=== PATIENT | male | born 1995 | race Caucasian/White ===

== ENCOUNTER 2016-09-03 22:29 | Emergency (ER) | payer OTHER ==
--- NOTE | 2016-09-04 01:22 | EDDOCDS ---
Physician Documentation [facility] Name: James Byers Age: 21 yrs Sex: Male : 1995 Arrival Date: 09/03/2016 Time: 22:29 Bed TR7 Private MD: Other - Complete Info On Cds Disposition: 09/04/16 00:16 Discharged to Home/Self Care. Impression: Acute sinusitis, unspecified, Acute pharyngitis, unspecified. - Condition is Stable. - Discharge Instructions: Sinusitis, Adult, Sore Throat. - Prescriptions for Augmentin 875- 125 mg Oral Tablet - take 1 tablet by ORAL route every 12 hours for 10 days; 20 tablet. magic mouthwash Mucous Membrane Solution - as directed 5 milliliters by ORAL route 3-4 times daily As needed GARGLE, SWISH, SPIT. MAALOX, LIQUID BENADRYL, VISCOUS LIDOCAINE. 1:1:1; 237 milliliter. Fluticasone 50 mcg/actuation Nasal [place], Suspension - inhale 2 spray by INTRANASAL route once daily; 1 bottle. - Medication Reconciliation, Local Pharmacy Hours, Work Release Form - 2 day form. - Follow up: Emergency Department; When: As needed; Reason: Worsening of conditions. Follow up: Private Physician; When: 1 - 2 days; Reason: Wound/Symptom Recheck, Recheck today's complaints, Continuance of care. - Problem is new. - Symptoms are unchanged. Historical: - Allergies: Codeine Sulfate (Anaphylaxis); - Home Meds: 1. Tylenol Severe Sinus 2 tab every 4 hours (Last dose: 09/03/2016 14:00) 2. Nyquil 2 tab as needed (Last dose: 09/03/2016 21:00) - PMHx: none; - PSHx: Adenoidectomy (March 2016); Tonsillectomy (March 2016); - Social history: Smoking status: Patient states was never smoker of tobacco. No barriers to communication noted, The patient speaks fluent Irish, Speaks appropriately for age. - Family history: Not pertinent. - : The pt / caregiver states he / she is not on anticoagulants. Home medication list is obtained from the patient. - Exposure Risk Screening:: None identified. Vital Signs: 09/03 22:30 BP 123 / 67; Pulse 93; Resp 18 S; Temp 100.0(O); Pulse Ox 98% on R/A; Weight 77.11 kg / gr2 170 lbs (R); Height 5 ft. 9 in. (175.26 cm) (R); Pain 4/10; 22:30 Body Mass Index 25.10 (77.11 kg, 175.26 cm) gr2 MDM: 22:43 Strep Screen, Nursing [place]. [facility] 22:43 Obtain sample by nasal aspiration ordered. [facility] 22:44 -Influenza A&B Rapid Antigen - Nose Ordered. EDMS 23:09 GATS (NEGATIVE STREP SCREEN) Ordered. EDMS 09/04 00:38 Financial registration complete. [facility] 00:38 [facility] Payment Agreement was scanned into [employer] and attached to record. [facility] Signatures: Dispatcher [employer] [facility] Lo Bahena, RN ARTEM [facility] Raimundo Leiva RN RN Danae Arroyo, Divya Mak PA-C [facility] The chart was reviewed and I authenticate all verbal orders and agree with the evaluation and treatment provided.Attachments: 00:38 [facility] Payment Agreement [facility] MTDD
--- NOTE | 2016-09-04 01:23 | EDDOCDS ---
Nurse's Notes [facility] Name: James Byers Age: 21 yrs Sex: Male : 1995 Arrival Date: 09/03/2016 Time: 22:29 Bed TR7 Private MD: Other - Complete Info On Cds Diagnosis: Acute sinusitis, unspecified;Acute pharyngitis, unspecified Presentation: 09/03 22:33 Presenting complaint: Patient states: "Can't breath, can't swallow, nose stuffed up, kmg1 neck sore, headache, and hot and cold.". Adult Sepsis Screening: The patient does not have new or worsening altered mentation. Patient's respiratory rate is less than 22. Systolic blood pressure is greater than 100. Patient has a qSOFA score of 0- Negative Sepsis Screen. Suicide/Homicide risk assessment- the patient denies having any suicidal and/or homicidal ideations and does not present with any other emotional, behavioral or mental health complaints. 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 Transition of care: patient was not received from another setting of care. 22:33 Acuity: FADY Level 4 km 22:33 Method Of Arrival: Walkin/Carried/Asstd km Triage Assessment: 22:39 General: Appears in no apparent distress, comfortable, Behavior is appropriate for age, kmg1 cooperative. Pain: Location: head and face Pain currently is 10 out of 10 on a pain scale. Quality of pain is described as aching, pressure, throbbing. HIV screening NA for this visit Offered previously. Neurological: Level of Consciousness is awake, alert, Oriented to person, place, time, Reports headache. Historical: - Allergies: Codeine Sulfate (Anaphylaxis); - Home Meds: 1. Tylenol Severe Sinus 2 tab every 4 hours (Last dose: 09/03/2016 14:00) 2. Nyquil 2 tab as needed (Last dose: 09/03/2016 21:00) - PMHx: none; - PSHx: Adenoidectomy (March 2016); Tonsillectomy (March 2016); - Social history: Smoking status: Patient states was never smoker of tobacco. No barriers to communication noted, The patient speaks fluent [place], Speaks appropriately for age. - Family history: Not pertinent. - : The pt / caregiver states he / she is not on anticoagulants. Home medication list is obtained from the patient. - Exposure Risk Screening:: None identified. Screenin/22 01:20 Screening information is obtained from the patient. Fall risk: No risks identified. cz Assistance ADL's: requires no assistance with activities of daily living. Abuse/DV Screen: The patient / caregiver reports he/she is: not in a situation that causes fear, pain or injury. Nutritional screening: No deficits noted. Advance Directives: Currently, there is no health care proxy. There is no active DNR order. There is no living will. There is no Power of [employer]. Advance directive information has not previously been placed in an [facility] medical record. home support is adequate. Assessment: 01:20 Reassessment: Patient appears in no apparent distress at this time. Vital Signs: 09/03 22:30 BP 123 / 67; Pulse 93; Resp 18 S; Temp 100.0(O); Pulse Ox 98% on R/A; Weight 77.11 kg gr2 (R); Height 5 ft. 9 in. (175.26 cm) (R); Pain 4/10; 22:30 Body Mass Index 25.10 (77.11 kg, 175.26 cm) gr2 Vitals: 22:30 Log In Time: September 03, 2016 at 22:30. gr2 23:08 Strep Screen is obtained and tested: Negative, a GATSNEG culture is ordered in [place] [id number] and sent. ED Course: 22:29 Patient visited by Abe Perez. gr2 22:29 Patient moved to Waiting gr2 22:30 Other - Complete Info On Cds is Private Physician. gr2 22:32 Patient visited by Aeb Perez. gr2 22:32 Patient moved to Pre RCE gr2 22:34 Triage Initiated kmg1 22:45 -Influenza A&B Rapid Antigen - Nose Sent. kmg1 23:24 GATS (NEGATIVE STREP SCREEN) Sent. kmg1 23:57 Patient moved to Triage 2 cz 09/04 00:08 Danae Arroy[facility]-C [facility]. dt4 00:08 Rhett Vaca DO is Attending Physician. dt4 00:08 Patient visited by Danae Arroyo PA-C. dt4 00:31 [facility] to [facility] cz 00:37 Patient name changed from James\\S\\T\\S\\Byers\\S\\ to James\\S\\Rhys\\S\\Byers. EDMS 00:38 [facility] Payment Agreement was scanned into [employer] and attached to record. [facility] 01:20 The patient / caregiver is instructed regarding the plan of care and ED course. cz 01:20 No IV's were initiated during this patient's visit. No procedures done that require cz assistance. Order Results: Lab Order: -Influenza A&B Rapid Antigen - Nose; SPEC'M 09/03/16 22:48 Test: INFLUENZA A RAPID SCR by ICA; Value: INFLUENZA A RESULTS NEGATIVE; Status: F Test: INFLUENZA A RAPID SCR by ICA; Value: Comments:; Status: F Test: INFLUENZA B RAPID SCR by ICA; Value: INFLUENZA B RESULTS NEGATIVE; Status: F Test Note: ; The Influenza test is a direct rapid immunoassay for the qualitative detection of Influenza viral antigen. Cell culture (Viral Culture) testing should be considered to confirm NEGATIVE results and to assist in detecting other viruses that can provide similar clinical symptoms. Please contact the lab within 24 hours ([phone]) if confirmatory testing is desired. Outcome: 00:16 Discharge ordered by Provider. dt4 01:20 Discharge Assessment: Patient awake, alert and oriented x 3. No cognitive and/or cz functional deficits noted. Patient verbalized understanding of disposition instructions. patient administered narcotics - no. The following High Risk Discharge criteria are identified: None. Discharged to home ambulatory, with significant other. Condition: stable. Discharge instructions given to patient, Instructed on discharge instructions, follow up and referral plans. medication usage, Demonstrated understanding of instructions, medications, Pt was receptive of discharge instructions/ teaching. Prescriptions given X 3. No special radiology studies were completed. Property :Personal belongings accompany Pt. 01:22 Patient left the ED. cz Signatures: Dispatcher [employer] EDMS Lo Bahena RN RN kmg1 Raimundo Leiva RN RN cz Abe Perez gr2 Danae Arroyo PA-C PA-C dt4 Divya Vásquez [facility] MTDD
--- NOTE | 2016-09-06 02:23 | EDDOCDS ---
Physician Documentation [facility] Name: James Byers Age: 21 yrs Sex: Male : 1995 Arrival Date: 09/03/2016 Time: 22:29 Bed TR7 Private MD: Other - Complete Info On Cds Disposition: 09/04/16 00:16 Discharged to Home/Self Care. Impression: Acute sinusitis, unspecified, Acute pharyngitis, unspecified. - Condition is Stable. - Discharge Instructions: Sinusitis, Adult, Sore Throat. - Prescriptions for Augmentin 875- 125 mg Oral Tablet - take 1 tablet by ORAL route every 12 hours for 10 days; 20 tablet. magic mouthwash Mucous Membrane Solution - as directed 5 milliliters by ORAL route 3-4 times daily As needed GARGLE, SWISH, SPIT. MAALOX, LIQUID BENADRYL, VISCOUS LIDOCAINE. 1:1:1; 237 milliliter. Fluticasone 50 mcg/actuation Nasal [place], Suspension - inhale 2 spray by INTRANASAL route once daily; 1 bottle. - Medication Reconciliation, Local Pharmacy Hours, Work Release Form - 2 day form. - Follow up: Emergency Department; When: As needed; Reason: Worsening of conditions. Follow up: Private Physician; When: 1 - 2 days; Reason: Wound/Symptom Recheck, Recheck today's complaints, Continuance of care. - Problem is new. - Symptoms are unchanged. Historical: - Allergies: Codeine Sulfate (Anaphylaxis); - Home Meds: 1. Tylenol Severe Sinus 2 tab every 4 hours (Last dose: 09/03/2016 14:00) 2. Nyquil 2 tab as needed (Last dose: 09/03/2016 21:00) - PMHx: none; - PSHx: Adenoidectomy (March 2016); Tonsillectomy (March 2016); - Social history: Smoking status: Patient states was never smoker of tobacco. No barriers to communication noted, The patient speaks fluent Thai, Speaks appropriately for age. - Family history: Not pertinent. - : The pt / caregiver states he / she is not on anticoagulants. Home medication list is obtained from the patient. - Exposure Risk Screening:: None identified. Vital Signs: 09/03 22:30 BP 123 / 67; Pulse 93; Resp 18 S; Temp 100.0(O); Pulse Ox 98% on R/A; Weight 77.11 kg / gr2 170 lbs (R); Height 5 ft. 9 in. (175.26 cm) (R); Pain 4/10; 22:30 Body Mass Index 25.10 (77.11 kg, 175.26 cm) gr2 MDM: 22:43 [place]rep Screen, [place] [facility] [place] Obtain sample by nasal aspiration [place]. [facility] 22:44 -Influenza A&B Rapid Antigen - Nose Ordered. EDMS 23:09 GATS (NEGATIVE STREP SCREEN) Ordered. EDMS 09/04 00:38 Financial registration complete. [facility] 00:38 [facility] Payment Agreement was scanned into [employer] and attached to record. [facility] 14:03 T-Sheet-- Draft Copy was scanned into [employer] and attached to record. kf3 Signatures: Dispatcher [employer] EDPA Lo Bahena RN RN kmg1 Raimundo Leiva RN RN cz Ramiro Avila, Reg Reg kf3 Danae Arroyo PA-C PAGay dt4 Divya Vásquez [facility] The chart was reviewed and I authenticate all verbal orders and agree with the evaluation and treatment provided.Attachments: 00:38 [facility] Payment Agreement [facility] 14:03 T-Sheet-- Draft Copy kf3 Chart Complete MTDD
--- NOTE | 2016-09-06 02:23 | EDDOCDS ---
Nurse's Notes [facility] Name: James Byers Age: 21 yrs Sex: Male : 1995 Arrival Date: 09/03/2016 Time: 22:29 Bed TR7 Private MD: Other - Complete Info On Cds Diagnosis: Acute sinusitis, unspecified;Acute pharyngitis, unspecified Presentation: 09/03 22:33 Presenting complaint: Patient states: "Can't breath, can't swallow, nose stuffed up, kmg1 neck sore, headache, and hot and cold.". Adult Sepsis Screening: The patient does not have new or worsening altered mentation. Patient's respiratory rate is less than 22. Systolic blood pressure is greater than 100. Patient has a qSOFA score of 0- Negative Sepsis Screen. Suicide/Homicide risk assessment- the patient denies having any suicidal and/or homicidal ideations and does not present with any other emotional, behavioral or mental health complaints. 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 Transition of care: patient was not received from another setting of care. 22:33 Acuity: FADY Level 4 km 22:33 Method Of Arrival: Walkin/Carried/Asstd km Triage Assessment: 22:39 General: Appears in no apparent distress, comfortable, Behavior is appropriate for age, kmg1 cooperative. Pain: Location: head and face Pain currently is 10 out of 10 on a pain scale. Quality of pain is described as aching, pressure, throbbing. HIV screening NA for this visit Offered previously. Neurological: Level of Consciousness is awake, alert, Oriented to person, place, time, Reports headache. Historical: - Allergies: Codeine Sulfate (Anaphylaxis); - Home Meds: 1. Tylenol Severe Sinus 2 tab every 4 hours (Last dose: 09/03/2016 14:00) 2. Nyquil 2 tab as needed (Last dose: 09/03/2016 21:00) - PMHx: none; - PSHx: Adenoidectomy (March 2016); Tonsillectomy (March 2016); - Social history: Smoking status: Patient states was never smoker of tobacco. No barriers to communication noted, The patient speaks fluent Kazakh, Speaks appropriately for age. - Family history: Not pertinent. - : The pt / caregiver states he / she is not on anticoagulants. Home medication list is obtained from the patient. - Exposure Risk Screening:: None identified. Screenin/22 01:20 Screening information is obtained from the patient. Fall risk: No risks identified. cz Assistance ADL's: requires no assistance with activities of daily living. Abuse/DV Screen: The patient / caregiver reports he/she is: not in a situation that causes fear, pain or injury. Nutritional screening: No deficits noted. Advance Directives: Currently, there is no health care proxy. There is no active DNR order. There is no living will. There is no Power of Safety And Health Consultant. Advance directive information has not previously been placed in an [facility] medical record. home support is adequate. Assessment: 01:20 Reassessment: Patient appears in no apparent distress at this time. Vital Signs: 09/03 22:30 BP 123 / 67; Pulse 93; Resp 18 S; Temp 100.0(O); Pulse Ox 98% on R/A; Weight 77.11 kg gr2 (R); Height 5 ft. 9 in. (175.26 cm) (R); Pain 4/10; 22:30 Body Mass Index 25.10 (77.11 kg, 175.26 cm) gr2 Vitals: 22:30 Log In Time: September 03, 2016 at 22:30. gr2 23:08 Strep Screen is obtained and tested: Negative, a GATSNEG culture is ordered in [place] [address] and sent. ED Course: 22:29 Patient visited by Abe Perez. gr2 22:29 Patient moved to Waiting gr2 22:30 Other - Complete Info On Cds is Private Physician. gr2 22:32 Patient visited by Abe Perez. gr2 22:32 Patient moved to Pre RCE gr2 22:34 Triage Initiated kmg1 22:45 -Influenza A&B Rapid Antigen - Nose Sent. kmg1 23:24 GATS (NEGATIVE STREP SCREEN) Sent. kmg1 23:57 Patient moved to Triage 2 cz 09/04 00:08 Danae Arroy[facility]-C [facility]. dt4 00:08 Rhett Vaca DO is Attending Physician. dt4 00:08 Patient visited by Danae Arroyo PA-C. dt4 00:31 Patient moved to [facility] cz 00:37 Patient name changed from James\\S\\T\\S\\Byers\\S\\ to James\\S\\Rhys\\S\\Byers. EDMS 00:38 [facility] Payment Agreement was scanned into [employer] and attached to record. [facility] 01:20 The patient / caregiver is instructed regarding the plan of care and ED course. cz 01:20 No IV's were initiated during this patient's visit. No procedures done that require cz assistance. 14:03 T-Sheet-- Draft Copy was scanned into [employer] and attached to record. kf3 Order Results: Lab Order: -Influenza A&B Rapid Antigen - Nose; SPEC'M 09/03/16 22:48 Test: INFLUENZA A RAPID SCR by ICA; Value: INFLUENZA A RESULTS NEGATIVE; Status: F Test: INFLUENZA A RAPID SCR by ICA; Value: Comments:; Status: F Test: INFLUENZA B RAPID SCR by ICA; Value: INFLUENZA B RESULTS NEGATIVE; Status: F Test Note: ; The Influenza test is a direct rapid immunoassay for the qualitative detection of Influenza viral antigen. Cell culture (Viral Culture) testing should be considered to confirm NEGATIVE results and to assist in detecting other viruses that can provide similar clinical symptoms. Please contact the lab within 24 hours ([phone]) if confirmatory testing is desired. Lab Order: GATS (NEGATIVE STREP SCREEN); SPEC'M 09/03/16 23:08 Test: GATS CULTURE (NEG STREP SCR); Value: GATS RESULT NEGATIVE FOR STREP PYOGENES (GROUP A); Status: F Outcome: 00:16 Discharge ordered by Provider. dt4 01:20 Discharge Assessment: Patient awake, alert and oriented x 3. No cognitive and/or cz functional deficits noted. Patient verbalized understanding of disposition instructions. patient administered narcotics - no. The following High Risk Discharge criteria are identified: None. Discharged to home ambulatory, with significant other. Condition: stable. Discharge instructions given to patient, Instructed on discharge instructions, follow up and referral plans. medication usage, Demonstrated understanding of instructions, medications, Pt was receptive of discharge instructions/ teaching. Prescriptions given X 3. No special radiology studies were completed. Property :Personal belongings accompany Pt. 01:22 Patient left the ED. cz Signatures: Dispatcher [facility] Lo Bahena RN RN kmg1 Raimundo Leiva RN RN cz Ramiro Avila, Reg Reg kf3 Abe Perez gr2 Danae Arroyo PA-C PA-C dt4 Divya Vásquez bere Chart Complete MTDD
--- NOTE | 2016-09-06 02:23 | EDDOCDS ---
Physician Documentation [facility] Name: James Byers Age: 21 yrs Sex: Male : 1995 Arrival Date: 09/03/2016 Time: 22:29 Bed TR7 Private MD: Other - Complete Info On Cds Disposition: 09/04/16 00:16 Discharged to Home/Self Care. Impression: Acute sinusitis, unspecified, Acute pharyngitis, unspecified. - Condition is Stable. - Discharge Instructions: Sinusitis, Adult, Sore Throat. - Prescriptions for Augmentin 875- 125 mg Oral Tablet - take 1 tablet by ORAL route every 12 hours for 10 days; 20 tablet. magic mouthwash Mucous Membrane Solution - as directed 5 milliliters by ORAL route 3-4 times daily As needed GARGLE, SWISH, SPIT. MAALOX, LIQUID BENADRYL, VISCOUS LIDOCAINE. 1:1:1; 237 milliliter. Fluticasone 50 mcg/actuation Nasal [place], Suspension - inhale 2 spray by INTRANASAL route once daily; 1 bottle. - Medication Reconciliation, Local Pharmacy Hours, Work Release Form - 2 day form. - Follow up: Emergency Department; When: As needed; Reason: Worsening of conditions. Follow up: Private Physician; When: 1 - 2 days; Reason: Wound/Symptom Recheck, Recheck today's complaints, Continuance of care. - Problem is new. - Symptoms are unchanged. Historical: - Allergies: Codeine Sulfate (Anaphylaxis); - Home Meds: 1. Tylenol Severe Sinus 2 tab every 4 hours (Last dose: 09/03/2016 14:00) 2. Nyquil 2 tab as needed (Last dose: 09/03/2016 21:00) - PMHx: none; - PSHx: Adenoidectomy (March 2016); Tonsillectomy (March 2016); - Social history: Smoking status: Patient states was never smoker of tobacco. No barriers to communication noted, The patient speaks fluent Croatian, Speaks appropriately for age. - Family history: Not pertinent. - : The pt / caregiver states he / she is not on anticoagulants. Home medication list is obtained from the patient. - Exposure Risk Screening:: None identified. Vital Signs: 09/03 22:30 BP 123 / 67; Pulse 93; Resp 18 S; Temp 100.0(O); Pulse Ox 98% on R/A; Weight 77.11 kg / gr2 170 lbs (R); Height 5 ft. 9 in. (175.26 cm) (R); Pain 4/10; 22:30 Body Mass Index 25.10 (77.11 kg, 175.26 cm) gr2 MDM: 22:43 Strep Screen, Nursing ordered. [facility] 22:43 Obtain sample by nasal aspiration ordered. [facility] 22:44 -Influenza A&B Rapid Antigen - Nose Ordered. EDMS 23:09 GATS (NEGATIVE STREP SCREEN) Ordered. EDMS 09/04 00:[address] [facility] 00:38 [facility] Payment Agreement was scanned into [employer] and attached to record. [facility] 14:03 T-Sheet-- Draft Copy was scanned into [employer] and attached to record. kf3 Signatures: Dispatcher [employer] EDAR Lo Bahena RN RN kmg1 Raimundo Leiva RN RN cz Ramiro Avila, Reg Reg kf3 Danae Arroyo PA-C PAGay dt4 Divya Vásquez [facility] The chart was reviewed and I authenticate all verbal orders and agree with the evaluation and treatment provided.Attachments: 00:38 [facility] Payment Agreement [facility] 14:03 T-Sheet-- Draft Copy kf3 Chart Complete MTDD
== END 2016-09-04 01:22 | disposition home or self-care (01) ==
LOC: M ED 22:29
DX: J01.90 Acute sinusitis, unspecified (principal); J02.9 Acute pharyngitis, unspecified; Z88.5 Allergy status to narcotic agent

== ENCOUNTER 2020-02-11 10:23 | Day surgery (SDC) | payer OTHER ==
[~2020-02-11] VITALS: Ht 175.3 cm; Wt 95.3 kg
[~2020-02-11 10:23] MED LIST: LIDOCAINE 1% MDV 20ML VIAL SQ PRN; LR 1,000 ML IV ONE; PROT20TA11 PO; ceFAZolin SOD 2 GM in IV 1 EA IV ONE
[2020-02-11] MEDS ORDERED: ROPIvacaine 0.5% 30ML INJECTION (J2795 PER 1MG) ONE (10:24)
[2020-02-11] MEDS ORDERED: LIDOCAINE 1% MDV 20ML VIAL ONE (10:24)
[2020-02-11] MEDS ORDERED: dexameTHASONE 10MG/1ML VIAL PRES.FREE (J1100 PER 1MG) ONE (10:24)
[2020-02-11] MEDS ORDERED: propofoL 200 MG/20 ML VIAL As Ordered ONE ×3 (11:17→15:29)
[2020-02-11] MEDS ORDERED: MIDAZOLAM INJ 2MG/2ML VIAL (J2250 PER 1MG) As Ordered ONE ×2 (11:18→11:22)
[2020-02-11] MEDS ORDERED: LIDOCAINE 2% 100MG/5ML SDV (FOR ANES.) As Ordered ONE (11:19)
[2020-02-11] MEDS ORDERED: fentaNYL 100 MCG/2 ML INJECTION (J3010) As Ordered ONE ×3 (11:21→14:55)
[2020-02-11] MEDS ORDERED: ROCURONIUM BROMIDE 50 MG/5 ML VIAL As Ordered ONE ×2 (11:22→14:19)
[2020-02-11] MEDS ORDERED: fentaNYL 100 MCG/2 ML INJECTION (J3010) IV ONE (12:00)
[2020-02-11] MEDS ORDERED: MIDAZOLAM INJ 2MG/2ML VIAL (J2250 PER 1MG) IV ONE (12:00)
[2020-02-11] MEDS ORDERED: BUPIVACAINE HCL 0.5% 30 ML VIAL As Ordered ONE (13:08)
[2020-02-11] MEDS ORDERED: ONDANSETRON 4MG/2ML VIAL As Ordered ONE (13:09)
[2020-02-11] MEDS ORDERED: SUGAMMADEX SODIUM 500 MG/5 ML VIAL (BRIDION) As Ordered ONE (13:09)
--- NOTE | 2020-02-11 14:30 | REP ---
Clinical: Preoperative assessment. Technique: Portable single view of the left shoulder. Findings: The glenohumeral joint appears relatively intact and normal. Resorptive changes to the distal clavicle versus trauma. Electronically Signed by Solo Haynes MD 02/11/2020 02:21 P
[2020-02-11] MEDS ORDERED: ACETAMINOPHEN 1000MG 100ML IV BTL (OFIRMEV) (J0131 PER 10MG) As Ordered ONE (15:36)
[2020-02-11] MEDS ORDERED: ONDANSETRON 4MG/2ML VIAL IV PRN (17:00)
[2020-02-11] MEDS ORDERED: oxyCODONE 5MG TAB PO PRN (17:00)
[2020-02-11] MEDS ORDERED: HYDROMORPHONE HCL 0.5 MG/ 0.5 ML SYRINGE (J1170 PER 1) IV PRN (17:00)
[2020-02-11] MEDS ORDERED: fentaNYL 100 MCG/2 ML INJECTION (J3010) IV PRN (17:00)
[2020-02-11] MEDS ORDERED: LR 1,000 ML IV SCH ×2 (17:00)
[2020-02-11] MEDS ORDERED: METOCLOPRAMIDE INJ 10MG/2ML VIAL (J2765 PER 1) As Ordered ONE (17:37)
[2020-02-11] MEDS ORDERED: METOCLOPRAMIDE INJ 10MG/2ML VIAL (J2765 PER 1) IV ONE (17:45)
[2020-02-11 19:03] VITALS: BP 115/64
== END 2020-02-11 19:02 | disposition home or self-care (01) ==
LOC: M SDC 10:23
PROVIDERS: ATTEND Orthopaedic Surgery
DX: S43.102A Unspecified dislocation of left acromioclavicular joint, initial encounter (principal); K21.9 Gastro-esophageal reflux disease without esophagitis; Z79.899 Other long term (current) drug therapy; Z88.5 Allergy status to narcotic agent; Z91.013 Allergy to seafood; X58.XXXA Exposure to other specified factors, initial encounter; Y92.89 Other specified places as the place of occurrence of the external cause; Y93.9 Activity, unspecified; Y99.9 Unspecified external cause status
CPT/HCPCS: 23120; 23550; 64415; 73020; 88300; C1713; C1762; J0131; J0690; J1100; J2250; J2405; J2765; J2795; J3010

== ENCOUNTER 2020-10-19 20:07 | Emergency (ER) | payer OTHER ==
[~2020-10-19] VITALS: Ht 175.3 cm; Wt 102.3 kg
[~2020-10-19 20:07] MED LIST changes: -LIDOCAINE 1% MDV 20ML VIAL SQ PRN; -LR 1,000 ML IV ONE; -ceFAZolin SOD 2 GM in IV 1 EA IV ONE
[2020-10-19 20:08] VITALS: BP 132/89
== END 2020-10-19 21:25 | disposition home or self-care (01) ==
LOC: M ED 20:07
DX: T18.128A Food in esophagus causing other injury, initial encounter (principal); X58.XXXA Exposure to other specified factors, initial encounter; Y92.89 Other specified places as the place of occurrence of the external cause; K20.0 Eosinophilic esophagitis; Z88.5 Allergy status to narcotic agent; Z91.018 Allergy to other foods; Z79.899 Other long term (current) drug therapy